=== PATIENT | male | born 1960 | race Caucasian/White ===

== ENCOUNTER 2018-12-10 07:21 | Day surgery (SDC) | payer BC ==
[2018-12-10] MEDS ORDERED: Propofol 200 MG/20 ML SDV IV ONE (07:22)
[2018-12-10] MEDS ORDERED: Lidocaine 1% PF 2 ML SDV INJECT ONE (07:22)
[2018-12-10] MEDS ORDERED: Sodium Chloride 0.9% 10 ML Syringe FLUSH PRN (07:30)
[2018-12-10] MEDS ORDERED: Lactated Ringers 1,000 ML IV SCH (07:30)
--- NOTE | 2018-12-10 09:14 | PCM.OPNOTE ---
- General Post-Op/Procedure Note Date of Surgery/Procedure: 12/10/18 Operative Procedure(s): c scope with bx Findings: ascending and sigmoid colon polyp diffuse diverticulosis Pre Op Diagnosis: screening Post-Op Diagnosis: ascending and sigmoid colon polyp. diffuse diverticulosis Anesthesia Technique: MAC Primary Surgeon: Octavio Pandey Anesthesia Provider: Jameson Basurto Pathology: ascending and sigmoid colon polyp Complications: None Condition: Good Free Text/Narrative:: see dictation
--- NOTE | 2018-12-10 15:55 | OR ---
DATE OF OPERATION: 12/10/2018 SURGEON: Octavio Pandey MD PROCEDURE: Colonoscopy, cold forceps biopsy. PREOPERATIVE DIAGNOSIS: Colon cancer screening. POSTOPERATIVE DIAGNOSES: Ascending colon polyp, sigmoid colon polyp, and diffuse diverticulosis. INDICATIONS FOR SURGERY: This is a 58-year-old white male referred for screening colonoscopy. He was offered and accepted the same. DESCRIPTION OF PROCEDURE: After an excellent IV sedation was administered, digital rectal exam was performed. No marked abnormality was noted. Flexible colonoscope inserted, advanced to the cecum without difficulty. The prep was excellent. The following findings were noted: Ascending colon, a small polyp, biopsied with cold biopsy forceps, sent for permanent. Also some diffuse diverticulosis was noted. Transverse colon, diffuse diverticulosis. Descending colon, diffuse diverticulosis. Sigmoid, diffuse diverticulosis as well as small polyp which was biopsied with cold biopsy forceps. Rectum was unremarkable. Colon was deflated. Scope was removed. Patient tolerated the procedure well, was taken to recovery in good condition. Results by letter. /[id number] /MODL
== END 2018-12-10 09:40 | disposition home or self-care (01) ==
LOC: FB.SDS 07:21
PROVIDERS: ATTEND Surgery
DX: Z12.11 Encounter for screening for malignant neoplasm of colon (principal); D12.2 Benign neoplasm of ascending colon; K63.5 Polyp of colon; K57.30 Diverticulosis of large intestine without perforation or abscess without bleeding; H52.13 Myopia, bilateral; H52.4 Presbyopia; H52.223 Regular astigmatism, bilateral
CPT/HCPCS: 45380; 88305; J2001; J2704; J7120